=== PATIENT | male | born 1995 | race Caucasian/White ===

== ENCOUNTER 2018-02-25 17:50 | Emergency (ER) | payer SELFPAY ==
[2018-02-25] MEDS: IBUPROFEN 800 MG TABLET. PO (18:26)
== END 2018-02-25 19:40 | disposition home or self-care (01) ==
LOC: ER 17:50
DX: S93.602A Unspecified sprain of left foot, initial encounter (principal); X50.9XXA Other and unspecified overexertion or strenuous movements or postures, initial encounter; Y93.89 Activity, other specified; Y99.8 Other external cause status; Y92.89 Other specified places as the place of occurrence of the external cause
CPT/HCPCS: 73610; 73630; 99284